=== PATIENT | male | born 1945 | race Caucasian/White ===

== ENCOUNTER 2019-11-03 11:10 | Inpatient (IN) ==
[2019-11-03 12:20] LABS: Basophils % 0.6 % (0.0-0.8); Eosinophils # 0.2 10*3/uL (0.0-0.87); Eosinophils % 2.4 % (0.00-10.9); Hematocrit 39.4 VOL% (42.0-52.0); Hemoglobin 12.8 GM/DL (14.0-18.0); Immature Granulocytes % 0.4 %; Immature Granulocytes Absolute 0.03 #; Lymphocytes # 1.4 10*3/uL (1.4-4.0); Lymphocytes % 19.3 % (21.2-54.2); Mean Corpuscular HGB Conc 32.5 GM/DL (32-36); Mean Corpuscular Volume 95.4 FL (87-102); Mean Platelet Volume 10.3 FL (9.6-12.0); Monocytes % 8.7 % (1.7-12.7); Neutrophils % 68.6 % (38.7-73.9); Platelet Count 364 T/CUMM (130-400); Red Blood Count 4.13 MC/CUMM (3.8-5.5); Red Cell Distribution Width 12.1 % (9.3-17.3)
[2019-11-03 12:38] LABS: Alanine Aminotransferase 63 U/L (16-61); Albumin 3.2 G/DL (3.4-5.0); Alkaline Phosphatase 97 U/L (45-117); Aspartate Amino Transferase 40 U/L (0-37); Bilirubin,Total < 0.39 MG/DL (0.2-1.0); Blood Urea Nitrogen 12 MG/DL (7-18); Calcium 8.8 MG/DL (8.5-10.1); Estimated Glom Filtration Rate 123 ML/MIN; Glucose 94 MG/DL (74-106); Osmolality,Calculated 276.5 MOS/KG (273-304); Total Protein 7.9 G/DL (6.4-8.3)
[2019-11-03 12:50] LABS: ABG Base Excess -0.3 MMOL/L (-2.5-2.5); ABG HCO3 24.1 MMOL/L (20-26); ABG Oxygen Saturation 95.8 % (95-100); ABG PCO2 32.4 MM HG (35-48); ABG PH 7.456 (7.35-7.45); ABG PO2 73.6 MM HG (80-95); ABG TCO2 19.7 MMOL/L (23-27)
[2019-11-03] MEDS ORDERED: ONDANSETRON 4 MG/2 ML VIAL IV PRN (13:07)
[2019-11-03] MEDS ORDERED: PIPERACILLIN/TAZOBACTAM 3,375 MG VIAL IV ONE (13:50)
[2019-11-03] MEDS: SODIUM CHLORIDE 0.9% 1,000 ML IV SCH ×2 (14:15→20:45)
[2019-11-03] MEDS: ACETAMINOPHEN 325 MG TABLET PO PRN ×2 (14:17→20:44)
[2019-11-03] MEDS: PIPERACILLIN/TAZOBACTAM 3,375 MG in SODIUM CHLORIDE 0.9% 100 ML IV SCH (18:11)
[2019-11-03] MEDS: HYDROXYCHLOROQUINE 200 MG TABLET PO SCH (20:44)
[2019-11-03] MEDS: ZINC SULFATE 220 MG CAPSULE PO SCH (20:45)
[2019-11-04] MEDS: PIPERACILLIN/TAZOBACTAM 3,375 MG in SODIUM CHLORIDE 0.9% 100 ML IV SCH (00:50)
[2019-11-04] MEDS: SODIUM CHLORIDE 0.9% 1,000 ML IV SCH ×2 (05:37→15:06)
[2019-11-04] MEDS: ACETAMINOPHEN 325 MG TABLET PO PRN ×2 (05:38→14:15)
[2019-11-04 07:42] LABS: Basophils % 0.4 % (0.0-0.8); Eosinophils # 0.1 10*3/uL (0.0-0.87); Eosinophils % 1.1 % (0.00-10.9); Hematocrit 36.4 VOL% (42.0-52.0); Hemoglobin 11.6 GM/DL (14.0-18.0); Immature Granulocytes % 0.3 %; Immature Granulocytes Absolute 0.02 #; Lymphocytes # 1.2 10*3/uL (1.4-4.0); Lymphocytes % 17.7 % (21.2-54.2); Mean Corpuscular HGB Conc 31.9 GM/DL (32-36); Mean Platelet Volume 10.3 FL (9.6-12.0); Monocytes % 6.6 % (1.7-12.7); Neutrophils % 73.9 % (38.7-73.9); Platelet Count 321 T/CUMM (130-400); Red Blood Count 3.79 MC/CUMM (3.8-5.5); Red Cell Distribution Width 12.2 % (9.3-17.3)
[2019-11-04] MEDS ORDERED: NITROGLYCERIN SL 0.4 MG TABLET SL PRN (07:46)
[2019-11-04 07:51] LABS: INR 1.1; PT Patient Result 11.4 SECS (9.8-11.9)
[2019-11-04 08:02] LABS: Apearance,Urine CLEAR (Clear); Bilirubin,Urine Negative (Negative); Blood, Urine Negative (Negative); Glucose,Urine (UA) Negative (Negative); Ketones,Urine Negative (Negative); Mucus,Urine Occasional /LPF (Occasional); Nitrite,Urine Negative (Negative); Protein,Urine Negative; RBC,Urine 2 /HPF (0-4); Squamous Epithelial Cell,Urine Occasional /HPF (0-10); Urine Color Yellow (Yellow); Urine Specific Gravity 1.018 (1.001-1.035); Urine Urobilinogen < 2.0 EU/DL (0.2-1.0); WBC,Urine 1 /HPF (0-6)
[2019-11-04 08:10] LABS: Albumin 2.7 G/DL (3.4-5.0); Bilirubin,Total 0.5 MG/DL (0.2-1.0); Calcium 8.6 MG/DL (8.5-10.1); Osmolality,Calculated 271.8 MOS/KG (273-304); Total Protein 6.9 G/DL (6.4-8.3)
[2019-11-04] MEDS: ASPIRIN 325 MG TABLET PO SCH (08:57)
[2019-11-04] MEDS: HYDROXYCHLOROQUINE 200 MG TABLET PO SCH ×2 (08:57→21:25)
[2019-11-04] MEDS: CHOLECALCIFEROL 400 UNIT TABLET PO SCH (08:58)
[2019-11-04] MEDS: carvediloL 6.25 MG TABLET PO SCH ×2 (08:58→21:24)
[2019-11-04] MEDS: ASCORBIC ACID 500 MG TABLET PO SCH ×2 (08:58→21:25)
[2019-11-04] MEDS: cefTRIAXone 1,000 MG in SYRINGE 1 EACH IV SCH (08:59)
[2019-11-04] MEDS ORDERED: CHOLECALCIFEROL 400 UNIT TABLET PO SCH (09:00)
[2019-11-04] MEDS ORDERED: ALBUTEROL/IPRATROPIUM 3 ML NEB RESP TX SCH (11:00)
[2019-11-04] MEDS ORDERED: AZITHROMYCIN 250 MG TABLET PO ONE (11:00)
[2019-11-04] MEDS: ENOXAPARIN 40 MG/0.4 ML SYRINGE SUBCUT SCH (11:59)
[2019-11-04] MEDS ORDERED: IPRATROPIUM/ALBUTEROL INHALER INH SCH (13:00)
[2019-11-04] MEDS: ALBUTEROL INHALER 8 GM INH SCH ×2 (14:05→21:24)
[2019-11-04] MEDS ORDERED: MAGNESIUM HYDROXIDE SUSP 30 ML UDCUP PO PRN (14:09)
[2019-11-04] MEDS: DOCUSATE SODIUM 100 MG CAPSULE PO SCH (21:24)
[2019-11-04] MEDS: SIMVASTATIN 10 MG TABLET PO SCH (21:25)
[2019-11-05] MEDS: ALBUTEROL INHALER 8 GM INH SCH ×4 (00:50→19:00)
[2019-11-05] MEDS: SODIUM CHLORIDE 0.9% 1,000 ML IV SCH ×2 (00:50→10:49)
[2019-11-05 05:57] LABS: Basophils % 0.3 % (0.0-0.8); Eosinophils # 0.1 10*3/uL (0.0-0.87); Eosinophils % 1.1 % (0.00-10.9); Hematocrit 33.7 VOL% (42.0-52.0); Hemoglobin 11.3 GM/DL (14.0-18.0); Immature Granulocytes % 0.2 %; Immature Granulocytes Absolute 0.01 #; Lymphocytes # 1.3 10*3/uL (1.4-4.0); Lymphocytes % 20.4 % (21.2-54.2); Mean Corpuscular HGB Conc 33.5 GM/DL (32-36); Mean Corpuscular Volume 93.1 FL (87-102); Mean Platelet Volume 10.5 FL (9.6-12.0); Monocytes % 7.5 % (1.7-12.7); Neutrophils % 70.5 % (38.7-73.9); Platelet Count 306 T/CUMM (130-400); Red Blood Count 3.62 MC/CUMM (3.8-5.5); Red Cell Distribution Width 11.9 % (9.3-17.3); White Blood Count 6.4 T/CUMM (4-12)
[2019-11-05 06:17] LABS: Calcium 8.6 MG/DL (8.5-10.1); Osmolality,Calculated 270.8 MOS/KG (273-304)
[2019-11-05] MEDS: carvediloL 6.25 MG TABLET PO SCH ×2 (10:03→20:50)
[2019-11-05] MEDS: ASPIRIN 325 MG TABLET PO SCH (10:03)
[2019-11-05] MEDS: DOCUSATE SODIUM 100 MG CAPSULE PO SCH ×2 (10:03→20:50)
[2019-11-05] MEDS: PANTOPRAZOLE 40 MG TABLET PO SCH (10:04)
[2019-11-05] MEDS: CHOLECALCIFEROL 400 UNIT TABLET PO SCH (10:04)
[2019-11-05] MEDS: cefTRIAXone 1,000 MG in SYRINGE 1 EACH IV SCH (10:04)
[2019-11-05] MEDS: ASCORBIC ACID 500 MG TABLET PO SCH ×2 (10:04→20:50)
[2019-11-05] MEDS: AZITHROMYCIN 250 MG TABLET PO SCH (10:04)
[2019-11-05] MEDS: HYDROXYCHLOROQUINE 200 MG TABLET PO SCH ×2 (10:04→20:50)
[2019-11-05] MEDS: ENOXAPARIN 40 MG/0.4 ML SYRINGE SUBCUT SCH (11:40)
[2019-11-05] MEDS: SIMVASTATIN 10 MG TABLET PO SCH (20:50)
[2019-11-05] MEDS: ZINC SULFATE 220 MG CAPSULE PO SCH (20:50)
[2019-11-05] MEDS: TEMAZEPAM 15 MG CAPSULE PO SCH (20:50)
[2019-11-06] MEDS: ALBUTEROL INHALER 8 GM INH SCH ×4 (00:40→20:37)
[2019-11-06 06:20] LABS: Basophils % 0.3 % (0.0-0.8); Eosinophils # 0.1 10*3/uL (0.0-0.87); Hemoglobin 12.6 GM/DL (14.0-18.0); Immature Granulocytes % 0.2 %; Immature Granulocytes Absolute 0.01 #; Lymphocytes # 1.7 10*3/uL (1.4-4.0); Lymphocytes % 27.1 % (21.2-54.2); Mean Corpuscular HGB Conc 32.3 GM/DL (32-36); Mean Corpuscular Volume 95.8 FL (87-102); Mean Platelet Volume 10.5 FL (9.6-12.0); Monocytes % 8.7 % (1.7-12.7); Neutrophils % 62.7 % (38.7-73.9); Platelet Count 354 T/CUMM (130-400); Red Blood Count 4.07 MC/CUMM (3.8-5.5); Red Cell Distribution Width 11.9 % (9.3-17.3); White Blood Count 6.2 T/CUMM (4-12)
[2019-11-06 06:42] LABS: Calcium 8.6 MG/DL (8.5-10.1); Osmolality,Calculated 277.4 MOS/KG (273-304)
[2019-11-06] MEDS: ASPIRIN 325 MG TABLET PO SCH (08:45)
[2019-11-06] MEDS: DOCUSATE SODIUM 100 MG CAPSULE PO SCH ×2 (08:45→20:37)
[2019-11-06] MEDS: CHOLECALCIFEROL 400 UNIT TABLET PO SCH (08:46)
[2019-11-06] MEDS: HYDROXYCHLOROQUINE 200 MG TABLET PO SCH ×2 (08:46→20:37)
[2019-11-06] MEDS: PANTOPRAZOLE 40 MG TABLET PO SCH (08:46)
[2019-11-06] MEDS: carvediloL 6.25 MG TABLET PO SCH ×2 (08:46→20:37)
[2019-11-06] MEDS: AZITHROMYCIN 250 MG TABLET PO SCH (08:47)
[2019-11-06] MEDS: SODIUM CHLORIDE 0.9% 1,000 ML IV SCH (09:26)
[2019-11-06] MEDS: cefTRIAXone 1,000 MG in SYRINGE 1 EACH IV SCH (12:30)
[2019-11-06] MEDS: ENOXAPARIN 40 MG/0.4 ML SYRINGE SUBCUT SCH (12:30)
[2019-11-06] MEDS: ASCORBIC ACID 500 MG TABLET PO SCH ×2 (12:30→20:37)
[2019-11-06] MEDS: SIMVASTATIN 10 MG TABLET PO SCH (20:37)
[2019-11-06] MEDS: TEMAZEPAM 15 MG CAPSULE PO SCH (20:37)
[2019-11-07] MEDS: ALBUTEROL INHALER 8 GM INH SCH ×4 (00:27→20:34)
[2019-11-07] MEDS: ACETAMINOPHEN 325 MG TABLET PO PRN (04:51)
[2019-11-07] MEDS: ASCORBIC ACID 500 MG TABLET PO SCH ×2 (08:37→20:35)
[2019-11-07] MEDS: ASPIRIN 325 MG TABLET PO SCH (08:37)
[2019-11-07] MEDS: cefTRIAXone 1,000 MG in SYRINGE 1 EACH IV SCH (08:37)
[2019-11-07] MEDS: carvediloL 6.25 MG TABLET PO SCH ×2 (08:38→20:34)
[2019-11-07] MEDS: AZITHROMYCIN 250 MG TABLET PO SCH (08:38)
[2019-11-07] MEDS: DOCUSATE SODIUM 100 MG CAPSULE PO SCH ×2 (08:38→20:34)
[2019-11-07] MEDS: CHOLECALCIFEROL 400 UNIT TABLET PO SCH (08:38)
[2019-11-07] MEDS: PANTOPRAZOLE 40 MG TABLET PO SCH (08:38)
[2019-11-07] MEDS: ENOXAPARIN 40 MG/0.4 ML SYRINGE SUBCUT SCH (12:29)
[2019-11-07] MEDS: ZINC SULFATE 220 MG CAPSULE PO SCH (20:34)
[2019-11-07] MEDS: SIMVASTATIN 10 MG TABLET PO SCH (20:34)
[2019-11-07] MEDS: TEMAZEPAM 15 MG CAPSULE PO SCH (20:34)
[2019-11-08] MEDS: ALBUTEROL INHALER 8 GM INH SCH ×2 (01:42→10:02)
[2019-11-08 06:26] LABS: Basophils % 0.5 % (0.0-0.8); Eosinophils # 0.1 10*3/uL (0.0-0.87); Eosinophils % 1.4 % (0.00-10.9); Hemoglobin 11.9 GM/DL (14.0-18.0); Immature Granulocytes % 0.3 %; Immature Granulocytes Absolute 0.02 #; Lymphocytes # 1.5 10*3/uL (1.4-4.0); Lymphocytes % 23.1 % (21.2-54.2); Mean Corpuscular Volume 92.3 FL (87-102); Mean Platelet Volume 10.4 FL (9.6-12.0); Monocytes % 9.2 % (1.7-12.7); Neutrophils % 65.5 % (38.7-73.9); Platelet Count 343 T/CUMM (130-400); Red Blood Count 3.79 MC/CUMM (3.8-5.5); Red Cell Distribution Width 11.9 % (9.3-17.3); White Blood Count 6.3 T/CUMM (4-12)
[2019-11-08 06:54] LABS: Calcium 8.7 MG/DL (8.5-10.1); Osmolality,Calculated 273.7 MOS/KG (273-304)
[2019-11-08] MEDS ORDERED: CEFUROXIME 500 MG TABLET PO SCH (09:00)
[2019-11-08] MEDS: ASPIRIN 325 MG TABLET PO SCH (10:02)
[2019-11-08] MEDS: DOCUSATE SODIUM 100 MG CAPSULE PO SCH (10:03)
[2019-11-08] MEDS: cefTRIAXone 1,000 MG in SYRINGE 1 EACH IV SCH (10:03)
[2019-11-08] MEDS: carvediloL 6.25 MG TABLET PO SCH (10:03)
[2019-11-08] MEDS: PANTOPRAZOLE 40 MG TABLET PO SCH (10:03)
[2019-11-08] MEDS: ASCORBIC ACID 500 MG TABLET PO SCH (10:03)
[2019-11-08] MEDS: CHOLECALCIFEROL 400 UNIT TABLET PO SCH (10:04)
[2019-11-08] MEDS: AZITHROMYCIN 250 MG TABLET PO SCH (10:04)
[2019-11-08 10:06] VITALS: BP 138/75
== END 2019-11-08 10:56 | disposition home or self-care (01) | DRG 194 ==
LOC: N.ED 11:10 → N.EDINP 13:03 → N.2E 15:38
PROVIDERS: ADMIT Family Medicine; ATTEND Family Medicine